=== PATIENT | male | born 1990 | race Caucasian/White ===

== ENCOUNTER 2016-11-16 14:51 | Inpatient (IN) | payer OTHER ==
[~2016-11-16] VITALS: Ht 172.7 cm; Wt 74.2 kg
[2016-11-16] MEDS ORDERED: ONDANSETRON 4 MG INJ IV STA (15:28)
[2016-11-16] MEDS ORDERED: morphine 4 MG/ML VIAL IV STA (15:28)
[2016-11-16] MEDS ORDERED: SOD CHLORIDE 0.9% 1,000 ML IV STA (15:28)
[2016-11-16 16:11] LABS: HEMATOCRIT 53.3 % (42.0-52.0); HEMOGLOBIN 17.9 g/dl (14.0-18.0); MEAN CORPUSCULAR HEMOGLOBIN 31.4 pg (29.0-33.0); MEAN CORPUSCULAR HGB CONC 33.5 g/dl (32.0-37.0); MEAN CORPUSCULAR VOLUME 93.8 fl (82.0-101.0); MEAN PLATELET VOLUME 7.6 fl (7.4-10.4); PLATELET COUNT 431 10^3/UL (140-440); RED BLOOD COUNT 5.68 10^6/ul (4.70-6.10); RED CELL DISTRIBUTION WIDTH 13.1 % (11.5-14.5)
[2016-11-16 16:17] LABS: CONDITION 1; SUSPECT 1
[2016-11-16 16:24] VITALS: TEMP 97.5
[2016-11-16 16:25] LABS: INR 1.04; PARTIAL THROMBOPLASTIN TIME 29.2 Sec (25.0-35.0); PROTIME 13.6 Sec (12.2-14.2); PT RATIO 1.1
[2016-11-16 16:28] LABS: ALBUMIN 5.6 g/dl (3.3-4.9)
[2016-11-16 16:29] LABS: POTASSIUM 4.6 mmol/L (3.5-5.1)
[2016-11-16 16:31] LABS: ALBUMIN/GLOBULIN RATIO 1.09; BILIRUBIN,INDIRECT 0.6 mg/dl (0-1.1); BILIRUBIN,TOTAL 0.6 mg/dl (0.2-1.3); CREATININE 0.99 mg/dl (0.61-1.24); TOTAL PROTEIN 10.7 g/dl (6.1-8.1)
[2016-11-16 16:32] LABS: CALCIUM 11.6 mg/dl (8.4-10.2)
[2016-11-16 16:50] LABS: LYMPHOCYTES # 2.3 10^3/ul (0.8-2.9); MONOCYTE # 0.3 10^3/ul (0.3-0.9); NEUTROPHIL # 21.3 10^3/ul (1.6-7.5)
[2016-11-16 16:52] LABS: PLATELET ESTIMATE PLT APPEAR INCREASED
[2016-11-16] MEDS ORDERED: LIDOCAINE 2% VISC 15 ML CUP PO ONE (17:00)
--- NOTE | 2016-11-16 17:00 | RADRPT ---
PROCEDURE: CT Abdomen and Pelvis without contrast CLINICAL INDICATION: The abdominal pain TECHNIQUE: Transaxial images were obtained through the abdomen and pelvis on a multi-slice scanner without the intravenous contrast administration. no oral contrast had previously been given. Sagitt al and coronal re-formations were subsequently reconstructed. One or more of the following dose reduction techniques were used: - Automated exposure control. - Adjustment of the mA and/or kV according to patient size. - Use of iterative reconstruction technique. Radiation dose: CTDIvol = 8.58 mGy; DLP = 454.74 mGy-cm. COMPARISON: 09/22/2016 FINDINGS: Lung bases: A 7 mm pleural based calcified granuloma is again seen within the posterior right lower lobe. Liver: Normal in size and in attenuation. There is no focal lesion. Gallbladder: The wall is not thickened. No radiopaque stones are identified. Bile ducts: The intra and extrahepatic bile ducts are normal in caliber. Pancreas: Appears normal with no mass or inflammation evident. Spleen: There is a very small lobulated spleen containing an 3 mm calcification laterally. Adrenals: Normal with no mass identified. Kidneys, ureters and bladder: The kidneys are normal in size and there is no mass, pathological calc ification, or hydronephrosis evident. There is no perinephric stranding. The ureters are normal in c aliber and no ureteroliths are identified. The bladder appears unremarkable. Reproductive organs: The prostate is not enlarged. Stomach and bowel: There is substantial stool within the right colon. There are a elongated air and fluid distended segments of proximal and mid small bowel with an abrupt caliber change, compatible with a mid small bowel obstruction. This is not significantly changed from the previous study. The stomach is again distended with fluid. Appendix: A normal vermiform appendix is evident. Peritoneum: The small amount of free intraperitoneal fluid previously seen within the pelvis is no l onger identified and no free air is evident. Aorta: Normal in caliber with no aneurysmal dilatation. IVC: Unremarkable. Lymph nodes: No pathologically enlarged nodes are identified. Osseous structures: The osseous elements appear intact. A bone island is seen in the left femoral h ead, unchanged. Metallic sternal wiring is noted. IMPRESSION: 1. Since the previous CT of 11/22/2015, findings are again consistent with the mid small bowel obst ruction. The distal small bowel is small and normal in caliber. Some stool is seen within the right colon and there is a normal-appearing vermiform appendix. The stomach remains moderately distended with fluid. 2. Small lobulated spleen containing a 3 mm calcification. 3. No evidence of urinary outflow obstruction or ureterolithiasis with the bladder appearing normal . 4. There is no longer free intraperitoneal fluid and no free intraperitoneal air is identified. 5. Evidence of previous midline sternotomy. Findings of mid small bowel obstruction were telephoned by Mitch Gandhi MD to Dr. Mckoy on 017 at 1655 hours. Physician Itzel Date Time Electronically viewed and signed by Physician Itzel on 11/16/2016 16:59 RH/
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
[2016-11-16] MEDS ORDERED: ACETAMINOPHEN 325 MG TAB PO PRN ×2 (18:00→19:00)
[2016-11-16] MEDS ORDERED: ONDANSETRON 4 MG INJ IV PRN ×2 (18:00→19:00)
--- NOTE | 2016-11-16 18:46 | RADRPT ---
PROCEDURE: XR Chest. CLINICAL INDICATION: Nasogastric tube placement TECHNIQUE: Single frontal view of the chest. COMPARISON: 09/22/2016 chest radiograph. FINDINGS: Postoperative changes from open thoracic surgery with sternotomy wires. The lungs are clear. No pleural effusion or pneumothorax. The cardiomediastinal silhouette is unremarkable. No acute osseous abnormalities. Side nasogastric tube at the level of the gastroesophageal junction. IMPRESSION: No acute abnormalities. Recommend advancing nasogastric tube by 10 cm. Results were discussed with Nurse Mera by telephone at 1839 hours on 11/16/[address] Storm headley RPTAT: AADD .Storm Mei MD, MD Date Time Electronically viewed and signed by .Storm Mei MD, MD on 11/16/2016 18:46 .B/
[2016-11-16] MEDS ORDERED: NA PHOSPHATE/BIPHOS 133 ML ENEMA PR PRN (19:00)
[2016-11-16] MEDS ORDERED: DOCUSATE SODIUM 100 MG CAP PO PRN (19:00)
[2016-11-16] MEDS ORDERED: NACL 0.9% 3 ML SYG IV SCH (19:00)
[2016-11-16] MEDS ORDERED: NITROGLYCERIN (SL) 0.4 MG TAB SL PRN (19:00)
[2016-11-16] MEDS ORDERED: HYDROCODONE/APAP (5/325) TAB PO PRN (19:00)
[2016-11-16] MEDS ORDERED: hydrALAzine 20 MG INJ IV PRN (19:00)
[2016-11-16] MEDS ORDERED: MAGNESIUM HYDROXIDE 30ML CUP PO PRN (19:00)
[2016-11-16] MEDS ORDERED: ALBUTEROL/IPRATROPIUM (NEB) 3 ML AMP HHN PRN (19:00)
[2016-11-16] MEDS ORDERED: LORAZEPAM 2 MG INJ IV PRN (19:00)
[2016-11-16] MEDS: morphine 2 MG INJ IV PRN (19:08)
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
[2016-11-16 20:09] VITALS: Ht 172.7 cm; Wt 74.2 kg
[2016-11-16 20:10] VITALS: BP 121/68; PULSE 79; RESP 18
[2016-11-16] MEDS: SOD CHLORIDE 0.9% 1,000 ML IV SCH (20:38)
[2016-11-16] MEDS: HEPARIN 5,000 UNIT/0.5 ML SYG SC SCH (22:25)
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
[2016-11-17] MEDS: SOD CHLORIDE 0.9% 1,000 ML IV SCH ×3 (04:32→15:29)
[2016-11-17] MEDS: PANTOPRAZOLE 40 MG INJ IV SCH (05:27)
[2016-11-17 07:11] LABS: POTASSIUM 4.4 mmol/L (3.5-5.1)
[2016-11-17 07:14] LABS: CREATININE 0.66 mg/dl (0.61-1.24); PHOSPHORUS 4.9 mg/dl (2.5-4.9)
[2016-11-17 07:15] LABS: CALCIUM 9.2 mg/dl (8.4-10.2); MAGNESIUM 1.8 mg/dl (1.7-2.5)
[2016-11-17 08:08] LABS: BASOPHILS % 0.3 % (0.0-2.0); EOSINOPHILS # 0.1 10^3/ul (0.0-0.5); EOSINOPHILS % 0.7 % (0.0-7.0); HEMATOCRIT 40.4 % (42.0-52.0); HEMOGLOBIN 13.7 g/dl (14.0-18.0); LYMPHOCYTES # 2.5 10^3/ul (0.8-2.9); LYMPHOCYTES % 21.6 % (15.0-51.0); MEAN CORPUSCULAR HEMOGLOBIN 31.7 pg (29.0-33.0); MEAN CORPUSCULAR HGB CONC 33.8 g/dl (32.0-37.0); MEAN CORPUSCULAR VOLUME 93.7 fl (82.0-101.0); MEAN PLATELET VOLUME 8.1 fl (7.4-10.4); MONOCYTE # 1.1 10^3/ul (0.3-0.9); MONOCYTES % 9.8 % (0.0-11.0); NEUTROPHIL # 7.8 10^3/ul (1.6-7.5); NEUTROPHILS % 67.6 % (39.0-77.0); PLATELET COUNT 476 10^3/UL (140-440); RED BLOOD COUNT 4.31 10^6/ul (4.70-6.10); RED CELL DISTRIBUTION WIDTH 13.2 % (11.5-14.5); UNCORRECTED WBC 11.5 10^3/ul (4.8-10.8); WHITE BLOOD COUNT 11.5 10^3/ul (4.8-10.8)
[2016-11-17 08:13] LABS: CONDITION 1
[2016-11-17 08:29] VITALS: BP 126/68; RESP 19
[2016-11-17 09:21] LABS: CHOL/HDL RATIO 3.9 RATIO
[2016-11-17] MEDS: HEPARIN 5,000 UNIT/0.5 ML SYG SC SCH ×2 (09:43→20:09)
[2016-11-17] MEDS: morphine 2 MG INJ IV PRN ×3 (09:44→19:35)
--- NOTE | 2016-11-17 10:09 | RADRPT ---
PROCEDURE: XR Abdomen. CLINICAL INDICATION: Abdominal pain TECHNIQUE: Two views (supine and upright) of the abdomen are available for review. COMPARISON: CT abdomen/pelvis 11/16/2016 FINDINGS: No organomegaly. There is a dilated loop of small bowel in the left upper abdomen with normal calibe r distal small bowel. There is scattered fecal material an air in nondilated colon. No free air is identified. No calculi identified. Unremarkable axial skeleton. IMPRESSION: Dilated loop of small bowel in the left upper abdomen with a normal caliber distal small bowel and s cattered fecal material and air in a nondilated colon (query partial proximal small bowel obstructio n). RPTAT: HGDB .Darryl Haynes MD, MD Date Time Electronically viewed and signed by .Darryl Haynes MD, on 11/17/2016 10:09 .B/
[2016-11-17 10:11] LABS: THYROID STIMULATING HORMONE 0.342 MIU/L (0.465-4.680)
[2016-11-17 10:31] LABS: ADD UMIC NO; URINE BILIRUBIN (Dip) NEGATIVE (NEGATIVE); URINE BLOOD (Dip) NEGATIVE (NEGATIVE); URINE COLOR YELLOW (YELLOW); URINE GLUCOSE (Dip) NEGATIVE (NEGATIVE); URINE KETONES (Dip) 15 (NEGATIVE); URINE LEUKOCYTE ESTERASE (Dip) NEGATIVE (NEGATIVE); URINE NITRITE (Dip) NEGATIVE (NEGATIVE); URINE TOTAL PROTEIN (Dip) NEGATIVE (NEGATIVE); URINE UROBILINOGEN (Dip) 0.2 E.U./dL (0.1-1.0)
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
[2016-11-17 13:37] LABS: LH ANALYZER COMMENTS 1
[2016-11-17 19:36] VITALS: BP 121/60; RESP 18
--- NOTE | 2016-11-17 20:34 | PN ---
DATE: 11/17/2016 SUBJECTIVE: Mr. Rodriguez is hospital day 1 for a small-bowel obstruction. The patient was without c omplaints. He is tolerating clears, passing gas, having bowel movements. OBJECTIVE VITAL SIGNS: He is afebrile. Vital signs stable. ABDOMEN: Soft, nondistended. LABORATORY DATA: Reveal a white count today of 11, hematocrit of 40, and platelets of 476. Sodium 143, potassium 4.4, chloride 103, CO2 24, BUN and creatinine 19 and 0.6, and glucose 78. IMAGING: Abdominal series today revealed improving small-bowel obstruction with air in the colon. ASSESSMENT AND PLAN Mr. Rodriguez is a 26-year-old male with a resolving small-bowel obstruction: 1. Advance to soft diet in the a.m. 2. If tolerates soft diet, may discharge home tomorrow. Dictated By: JULISA COHEN/NTS Conf#: [id number] DID#: [id number]
[2016-11-17] MEDS ORDERED: DIATR MEGLU/DIATRIZOATE SODIUM 120 ML BTL PO ONE (22:00)
[2016-11-17 22:18] VITALS: BP 111/55; RESP 18
[2016-11-18] MEDS: SOD CHLORIDE 0.9% 1,000 ML IV SCH ×2 (02:24→09:54)
[2016-11-18] MEDS: morphine 2 MG INJ IV PRN ×2 (03:56→09:54)
[2016-11-18] MEDS: PANTOPRAZOLE 40 MG INJ IV SCH (05:29)
[2016-11-18 07:46] VITALS: BP 115/61; RESP 20
[2016-11-18 08:10] LABS: BASOPHILS % 0.5 % (0.0-2.0); EOSINOPHILS # 0.1 10^3/ul (0.0-0.5); EOSINOPHILS % 2.3 % (0.0-7.0); HEMATOCRIT 38.7 % (42.0-52.0); HEMOGLOBIN 13.2 g/dl (14.0-18.0); LYMPHOCYTES # 2.1 10^3/ul (0.8-2.9); LYMPHOCYTES % 35.5 % (15.0-51.0); MEAN CORPUSCULAR HEMOGLOBIN 31.8 pg (29.0-33.0); MEAN CORPUSCULAR HGB CONC 34.1 g/dl (32.0-37.0); MEAN CORPUSCULAR VOLUME 93.2 fl (82.0-101.0); MEAN PLATELET VOLUME 7.7 fl (7.4-10.4); MONOCYTE # 0.5 10^3/ul (0.3-0.9); NEUTROPHIL # 3.1 10^3/ul (1.6-7.5); NEUTROPHILS % 52.7 % (39.0-77.0); PLATELET COUNT 400 10^3/UL (140-440); RED BLOOD COUNT 4.15 10^6/ul (4.70-6.10); RED CELL DISTRIBUTION WIDTH 13.1 % (11.5-14.5); UNCORRECTED WBC 5.9 10^3/ul (4.8-10.8); WHITE BLOOD COUNT 5.9 10^3/ul (4.8-10.8)
[2016-11-18 08:11] LABS: CONDITION 1
[2016-11-18 08:25] LABS: POTASSIUM 3.8 mmol/L (3.5-5.1)
[2016-11-18 08:27] LABS: CREATININE 0.59 mg/dl (0.61-1.24)
[2016-11-18 08:28] LABS: CALCIUM 8.5 mg/dl (8.4-10.2)
[2016-11-18] MEDS: HEPARIN 5,000 UNIT/0.5 ML SYG SC SCH (09:53)
--- NOTE | 2016-11-18 09:54 | RADRPT ---
PROCEDURE: XR Abdomen CLINICAL INDICATION: Small bowel obstruction TECHNIQUE: AP supine and upright radiographs of the abdomen were submitted COMPARISON: 11/17/2016 FINDINGS: There is metallic sternal wiring and surgical karol are seen in the left upper quadrant of the abd omen. There is a mild ileus located to the right upper quadrant and mid left abdomen. No free air is identified. No organomegaly or discrete mass is evident. No pathological calcification is identified. The osseous elements appear unremarkable. IMPRESSION: 1. Previous midline sternotomy and left upper quadrant abdominal surgery. 2. Mild ileus localized to the right upper quadrant and mid left abdomen, improved over the previou s. Air is seen through the colon. 3. No evidence of high-grade bowel obstruction Physician Itzel Date Time Electronically viewed and signed by Physician Itzel on 11/18/2016 09:54 /
--- NOTE | 2016-11-18 13:13 | PDOCDIS ---
Discharge Instructions CONDITION Patient Condition: Stable HOME CARE INSTRUCTIONS: Special Diet: Soft Diet ACTIVITY: Activity Restrictions: Slowly Increase Activity FOLLOW UP/APPOINTMENTS Appointments Please take your medications as prescribed. Please see your doctor in the clinic in 1 week. DARREL CASTANON Nov 18, 2016 13:12
[2016-11-18] MEDS ORDERED: UDMOM PO (13:14)
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
== END 2016-11-18 15:12 | disposition home or self-care (01) | DRG 390 ==
LOC: FTE 14:51 → MS1 17:34 → PP2 11-17 22:05
PROVIDERS: ADMIT Hospitalist; ATTEND Hospitalist
DX: K56.60 Unspecified intestinal obstruction (principal); D72.829 Elevated white blood cell count, unspecified
CPT/HCPCS: 71010; 74010; 74176; 80048; 80053; 80061; 81003; 83036; 83605; 83690; 83735; 84100; 84439; 84443; 85025; 85610; 85730; C9113; J2270; J2405; J7030

== ENCOUNTER 2016-12-03 15:44 | Emergency (ER) | payer OTHER ==
[~2016-12-03] VITALS: Ht 172.7 cm; Wt 71.0 kg
[~2016-12-03 15:44] MED LIST: UDMOM PO
[2016-12-03 16:00] VITALS: Ht 172.7 cm; Wt 71.0 kg
[2016-12-03] MEDS ORDERED: morphine 4 MG/ML VIAL IV STA (17:13)
[2016-12-03] MEDS ORDERED: ONDANSETRON 4 MG INJ IV STA (17:13)
[2016-12-03] MEDS ORDERED: SOD CHLORIDE 0.9% 1,000 ML IV STA (17:13)
[2016-12-03 18:05] LABS: HEMATOCRIT 50.8 % (42.0-52.0); HEMOGLOBIN 17.1 g/dl (14.0-18.0); MEAN CORPUSCULAR HEMOGLOBIN 31.4 pg (29.0-33.0); MEAN CORPUSCULAR HGB CONC 33.7 g/dl (32.0-37.0); MEAN PLATELET VOLUME 8.1 fl (7.4-10.4); PLATELET COUNT 385 10^3/UL (140-440); RED BLOOD COUNT 5.46 10^6/ul (4.70-6.10); RED CELL DISTRIBUTION WIDTH 12.9 % (11.5-14.5); UNCORRECTED WBC 18.4 10^3/ul (4.8-10.8); WHITE BLOOD COUNT 18.4 10^3/ul (4.8-10.8)
[2016-12-03 18:09] LABS: CONDITION 1; LH ANALYZER COMMENTS 1; SUSPECT 1
[2016-12-03 18:17] LABS: ALBUMIN 5.3 g/dl (3.3-4.9)
[2016-12-03 18:20] LABS: ALBUMIN/GLOBULIN RATIO 1.08; BILIRUBIN,INDIRECT 0.3 mg/dl (0-1.1); BILIRUBIN,TOTAL 0.3 mg/dl (0.2-1.3); CREATININE 0.82 mg/dl (0.61-1.24); TOTAL PROTEIN 10.2 g/dl (6.1-8.1)
[2016-12-03 18:21] LABS: CALCIUM 10.7 mg/dl (8.4-10.2)
--- NOTE | 2016-12-03 18:30 | RADRPT ---
PROCEDURE: CT abdomen and pelvis without contrast. CLINICAL INDICATION: Abdominal pain. TECHNIQUE: CT scan of the abdomen and pelvis without contrast was performed on a multi-slice CT [facility] . Sagittal and coronal reformatted images were obtained from the axial source images. DLP 389.4 mGycm. CTDIvol 7.6 mGy COMPARISON: 11/16/2016 FINDINGS: The lung bases are clear. There is limited evaluation of the solid viscera from the lack of IV con trast. There is normal density of the liver with no gross focal lesion or biliary ductal dilatation. The gallbladder is unremarkable without inflammation. The spleen is unremarkable without mass. The adrenal glands are within normal limits without mass. The kidneys are symmetric bilaterally with no evidence of renal or ureteral calculi. There is no hy dronephrosis or perinephric stranding. The pancreas is unremarkable without focal lesion or surrounding inflammatory changes. Again seen is dilatation of the small bowel within the mid abdomen with a narrow focal point of ngo sition seen on series 3, image 79 with distal small bowel collapse. The colon is collapsed as well and there is no appendicitis. There is no free air or free fluid. The stomach is well distended an d the proximal jejunum is nondilated. Mild inflammatory changes of the aguero of the dilated bowel i s again seen with air-fluid levels. There is no free air or free fluid. The aorta is unremarkable and there is no acute osseous abnormality. The uterus and adnexal structures within normal limits. IMPRESSION: Again seen are loops of prominently dilated bowel in the mid abdomen with an area of focal point of transition seen with distal collapse of the of the small and large bowel without evidence of appendi citis. There is no CT evidence of perforation. This could represent a small bowel obstruction rela flavio to an adhesion. The presence of an internal hernia is not excluded. No evidence of renal or ureteral calculi or hydronephrosis. RPTAT: AA .Itz Moses MD, MD Date Time Electronically viewed and signed by .Itz Moses MD, MD on 12/03/2016 18:30 .J/
[2016-12-03 18:44] LABS: LYMPHOCYTES # 1.7 10^3/ul (0.8-2.9); MONOCYTE # 0.6 10^3/ul (0.3-0.9); NEUTROPHIL # 15.8 10^3/ul (1.6-7.5)
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
== END 2016-12-03 20:16 | disposition left against medical advice (07) ==
LOC: FTE 15:44
DX: K56.69 Other intestinal obstruction (principal); D72.829 Elevated white blood cell count, unspecified; R11.10 Vomiting, unspecified
CPT/HCPCS: 36415; 74176; 80053; 83690; 85025; 96374; 96375; J2270; J2405; J7030; Z7502

== ENCOUNTER 2017-04-13 17:35 | Inpatient (IN) | payer OTHER ==
[~2017-04-13] VITALS: Ht 172.7 cm; Wt 75.6 kg
[2017-04-13] MEDS ORDERED: SOD CHLORIDE 0.9% 1,000 ML IV STA (18:44)
[2017-04-13] MEDS ORDERED: ONDANSETRON 4 MG INJ IV STA ×2 (18:44→20:35)
[2017-04-13] MEDS ORDERED: FAMOTIDINE 20 MG INJ IV STA (18:44)
[2017-04-13 19:03] LABS: ADD SCAN DIFF NO
[2017-04-13 19:07] LABS: BASOPHILS % 0.2 % (0.0-2.0); EOSINOPHILS # 0.1 10^3/ul (0.0-0.5); EOSINOPHILS % 0.6 % (0.0-7.0); HEMATOCRIT 47.3 % (42.0-52.0); HEMOGLOBIN 16.1 g/dl (14.0-18.0); LYMPHOCYTES # 1.4 10^3/ul (0.8-2.9); LYMPHOCYTES % 7.2 % (15.0-51.0); MEAN CORPUSCULAR HEMOGLOBIN 30.6 pg (29.0-33.0); MEAN CORPUSCULAR VOLUME 89.9 fl (82.0-101.0); MEAN PLATELET VOLUME 9.5 fl (7.4-10.4); MONOCYTE # 1.4 10^3/ul (0.3-0.9); MONOCYTES % 7.2 % (0.0-11.0); NEUTROPHIL # 16.1 10^3/ul (1.6-7.5); NEUTROPHILS % 84.4 % (39.0-77.0); PLATELET COUNT 435 10^3/UL (140-415); RED BLOOD COUNT 5.26 10^6/ul (4.70-6.10); RED CELL DISTRIBUTION WIDTH 13.3 % (11.5-14.5); WHITE BLOOD COUNT 19.1 10^3/ul (4.8-10.8)
[2017-04-13] MEDS ORDERED: morphine 4 MG/ML VIAL IV STA (19:15)
[2017-04-13 19:22] LABS: ALBUMIN 5.3 g/dl (3.3-4.9); ALBUMIN/GLOBULIN RATIO 1.43; BILIRUBIN,INDIRECT 0.4 mg/dl (0-1.1); BILIRUBIN,TOTAL 0.4 mg/dl (0.2-1.3); CALCIUM 9.6 mg/dl (8.4-10.2); CREATININE 0.74 mg/dl (0.61-1.24); POTASSIUM 4.2 mmol/L (3.5-5.1)
--- NOTE | 2017-04-13 19:37 | RADRPT ---
PROCEDURE: CT abdomen and pelvis without contrast. CLINICAL INDICATION: Abdominal pain and vomiting TECHNIQUE: CT scan of the abdomen and pelvis without contrast was performed on a multislice CT [facility] utilizing axial imaging from the lung bases through the pubis symphysis. The patient was scann ed without intravenous contrast. Sagittal and coronal reformatted images were made. The CTDIvol is 8.88 mGy and the DLP is 502.69 mGycm. One of the following 3 dose reduction techniques were used during this CT examination: automated exp osure control; adjustment of the mA and /or kV according to patient size; or use of iterative recons truciton technique. COMPARISON: 12/03/2016 CT 12/03/2016 FINDINGS: The lung bases are clear. The heart size is normal. No pericardial or pleural effusions are present . The patient is status post remote median sternotomy changes. The visualized liver is normal. The gallbladder is normal. No evidence for intrahepatic or extra pa sarah biliary ductal dilatation is present annette The patient is status post remote splenectomy changes . Markedly distended stomach with gastric contents are noted. Again noted are multiple dilated seg ments of small bowel in the upper to distal small bowel with maximum dimension of approximately 4.7 cm. Although difficult, the transition appears to be in the mid to lower quadrants of the abdomen. The visualized distal small bowel and colon are decompressed. The bilateral adrenal glands are nor mal. The bilateral kidneys are normal without evidence for hydroureteronephrosis or nephroureteroli thiasis. No evidence for abdominal ascites or pneumoperitoneum is present. The aorta is normal. No evidence for aneurysmal dilatation is present. The visualized pelvis demonstrates a normal urinary bladder. The prostate gland is normal. The imaged osseous structures demonstrate bilateral L5 spondylolysis without evidence for spondyloli sthesis. IMPRESSION: 1. Small bowel obstruction with transition point likely in the mid abdomen although poorly visualiz ed. 2. No evidence for pneumoperitoneum or ascites. 3. 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 RPTAT: HDC .Flakita Orozco MD, MD Date Time Electronically viewed and signed by .Flakita Orozco MD, MD on 04/13/2017 19:37 .C/
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
[2017-04-13] MEDS ORDERED: SOD CHLORIDE 0.9% 1,000 ML IV SCH (19:50)
[2017-04-13] MEDS ORDERED: LIDOCAINE 2% VISC 15 ML CUP PO ONE (20:00)
[2017-04-13] MEDS ORDERED: ACETAMINOPHEN 325 MG TAB PO PRN (20:00)
[2017-04-13] MEDS ORDERED: ONDANSETRON 4 MG INJ IV PRN ×2 (20:00→21:00)
[2017-04-13 20:31] VITALS: PULSE 80; TEMP 98
[2017-04-13] MEDS ORDERED: HYDROmorphONE 1 MG/ML SYG IV STA (20:35)
[2017-04-13] MEDS ORDERED: NACL 0.9% 3 ML SYG IV SCH (21:00)
[2017-04-13] MEDS ORDERED: ACETAMINOPHEN 650 MG SUPP PR PRN (21:00)
[2017-04-13] MEDS ORDERED: HYDROmorphONE 1 MG/ML SYG IV PRN (21:00)
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
[2017-04-13 21:18] VITALS: BP 133/83; RESP 20
[2017-04-13] MEDS: SOD CHLORIDE 0.9% 1,000 ML IV SCH (21:49)
[2017-04-13] MEDS: PANTOPRAZOLE 40 MG INJ IV SCH (21:49)
[2017-04-13 21:53] VITALS: Ht 172.7 cm; Wt 75.6 kg
[2017-04-14] MEDS: morphine 4 MG/ML VIAL IV PRN ×4 (05:15→21:33)
[2017-04-14 05:37] LABS: ADD SCAN DIFF NO
[2017-04-14 05:54] LABS: ABNORMAL IP MESSAGE 1; BASOPHILS % 0.3 % (0.0-2.0); EOSINOPHILS # 0.3 10^3/ul (0.0-0.5); EOSINOPHILS % 1.9 % (0.0-7.0); HEMATOCRIT 41.7 % (42.0-52.0); HEMOGLOBIN 14.4 g/dl (14.0-18.0); LYMPHOCYTES # 1.3 10^3/ul (0.8-2.9); LYMPHOCYTES % 8.8 % (15.0-51.0); MEAN CORPUSCULAR HGB CONC 34.5 g/dl (32.0-37.0); MEAN CORPUSCULAR VOLUME 89.9 fl (82.0-101.0); MEAN PLATELET VOLUME 9.2 fl (7.4-10.4); MONOCYTE # 1.6 10^3/ul (0.3-0.9); MONOCYTES % 10.9 % (0.0-11.0); NEUTROPHIL # 11.3 10^3/ul (1.6-7.5); NEUTROPHILS % 77.8 % (39.0-77.0); PLATELET COUNT 437 10^3/UL (140-415); RED BLOOD COUNT 4.64 10^6/ul (4.70-6.10); RED CELL DISTRIBUTION WIDTH 13.2 % (11.5-14.5); WHITE BLOOD COUNT 14.5 10^3/ul (4.8-10.8)
[2017-04-14] MEDS: PANTOPRAZOLE 40 MG INJ IV SCH ×2 (06:10→19:04)
[2017-04-14 06:24] LABS: ALBUMIN 4.6 g/dl (3.3-4.9); ALBUMIN/GLOBULIN RATIO 1.7; BILIRUBIN,INDIRECT 0.5 mg/dl (0-1.1); BILIRUBIN,TOTAL 0.5 mg/dl (0.2-1.3); CALCIUM 8.7 mg/dl (8.4-10.2); CREATININE 0.68 mg/dl (0.61-1.24); MAGNESIUM 1.9 mg/dl (1.7-2.5); PHOSPHORUS 3.8 mg/dl (2.5-4.9); POTASSIUM 3.9 mmol/L (3.5-5.1); TOTAL PROTEIN 7.3 g/dl (6.1-8.1)
[2017-04-14 07:43] VITALS: BP 126/65; RESP 18
--- NOTE | 2017-04-14 10:08 | RADRPT ---
PROCEDURE: XR Abdomen. CLINICAL INDICATION: Abdominal pain TECHNIQUE: Single frontal view of the abdomen was obtained. COMPARISON: CT from yesterday FINDINGS: There are moderately dilated loops of small bowel seen throughout the abdomen. There is air noted t hroughout the colon, including air in the rectosigmoid region. There are no abnormal calcifications overlying the urinary tracts. The soft tissues are unremarkable. The osseous structures are unremarkable. RPTAT: AA IMPRESSION: Moderately dilated loops of small bowel are noted, slightly improved when compared to the CT from . The findings likely represent a partial small bowel obstruction . .Zachary Ellis MD, MD Date Time Electronically viewed and signed by .Zachary Ellis MD, MD on 04/14/2017 10:08 .S/
[2017-04-14] MEDS: SOD CHLORIDE 0.9% 1,000 ML IV SCH ×2 (10:18→16:35)
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
--- NOTE | 2017-04-14 14:02 | RADRPT ---
PROCEDURE: XR Chest 1 View. CLINICAL INDICATION: Status post nasogastric tube placement TECHNIQUE: AP view of the chest was obtained. COMPARISON: November 16, 2016 FINDINGS: The cardiomediastinal silhouette is within normal limits. Median sternotomy wires overlie the heart. Nasogastric tube has its distal end curled in the expected location of the stomach. Subsegmental atelectasis is seen at the left lung base. No consolidations are identified. No pneumothorax is see n. Osseous structures are intact. IMPRESSION: Nasogastric tube with its distal end curled in the expected location of the stomach. Subsegmental atelectasis at the left lung base. RPTAT: AA .Michelet Ivy MD, MD Date Time Electronically viewed and signed by .Michelet Ivy MD, on 04/14/2017 14:02 .P/
[2017-04-14 19:30] VITALS: BP 125/71; RESP 20
--- NOTE | 2017-04-14 20:21 | PN ---
Date/Time of Note Date/Time of Note DATE: 04/14/17 TIME: 20:18 Assessment/Plan Lines/Catheters IV Catheter Type (from [facility]): Peripheral IV Rocha in Place (from [facility]): No Assessment/Plan Chief Complaint/Hosp Course 1. Abdominal pain secondary to recurrent partial small bowel obstruction. -N.p.o. -NG tube -Judicious fluid management -Close monitoring -Small bowel follow-through at some point 2. Leukocytosis probably secondary to above -As above -Consider antibiotics 3. Hypernatremia -Judicious fluid management and close monitoring 4. Nausea vomiting the above -As above Thank you very much for consulting me in this patient's care, Dict #: [id number] Problems: Subjective 24 Hr Interval Summary Minimal flatus this morning. No nausea vomiting. No bowel movements. Pain improved. No chest pain shortness of breath. No cough or seizures. No blood per mouth or rectum. No dysuria. He pulled NG tube out this morning however nurses replaced NG tube. Exam/Review of Systems Vital Signs Vitals Vital Signs Date Time Temp Pulse Resp B/P Pulse Ox O2 Delivery O2 Flow Rate FiO2 04/14/17 19:30 97.9 56 20 125/71 98 04/13/17 20:31 Room Air Intake and Output 04/13/17 04/13/17 04/14/17 14:59 22:59 06:59 Intake Total 600 ml Output Total 5 ml Balance 595 ml Exam Constitutional: alert, oriented, No distress Psych: nl mood/affect, No anxiety Head: atraumatic, normocephalic Eyes: EOMI, PERRL, nl conjunctiva, No icteric ENMT: mucosa pink and moist, nl external ears & nose, nl lips & teeth Neck: non-tender, supple, No jvd Respiratory: normal air movement, No congested cough, No crackles/rales, No labored breathing Cardiovascular: regular rate and rhythm, No edema Gastrointestinal: soft, tender (Minimal), No distended, No rebound or guarding Genitourinary - Male: nl penis, nl scrotum Musculoskeletal: nl extremities to inspection, nl gait and stance, No joint tenderness Extremities: normal pulses, No calf tenderness, No cyanosis Neurological: nl mental status, nl speech, nl strength Skin: nl turgor, No diaphoresis, No rash or lesions Lymph: nl lymph nodes Results Result Diagram: 04/14/17 0500 04/14/17 0500 SANTIAGO MENDOZA MD Apr 14, 2017 20:21
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
[2017-04-15] MEDS: morphine 4 MG/ML VIAL IV PRN ×3 (02:36→11:38)
[2017-04-15 05:55] LABS: ADD SCAN DIFF NO
[2017-04-15 05:59] LABS: BASOPHILS % 0.3 % (0.0-2.0); EOSINOPHILS # 0.3 10^3/ul (0.0-0.5); EOSINOPHILS % 2.6 % (0.0-7.0); HEMATOCRIT 42.1 % (42.0-52.0); HEMOGLOBIN 14.2 g/dl (14.0-18.0); LYMPHOCYTES # 2.2 10^3/ul (0.8-2.9); LYMPHOCYTES % 18.4 % (15.0-51.0); MEAN CORPUSCULAR HEMOGLOBIN 30.3 pg (29.0-33.0); MEAN CORPUSCULAR HGB CONC 33.7 g/dl (32.0-37.0); MEAN CORPUSCULAR VOLUME 89.8 fl (82.0-101.0); MONOCYTES % 8.8 % (0.0-11.0); NEUTROPHIL # 8.2 10^3/ul (1.6-7.5); NEUTROPHILS % 69.6 % (39.0-77.0); PLATELET COUNT 429 10^3/UL (140-415); RED BLOOD COUNT 4.69 10^6/ul (4.70-6.10); RED CELL DISTRIBUTION WIDTH 12.9 % (11.5-14.5); WHITE BLOOD COUNT 11.7 10^3/ul (4.8-10.8)
[2017-04-15] MEDS: PANTOPRAZOLE 40 MG INJ IV SCH (06:06)
[2017-04-15] MEDS: SOD CHLORIDE 0.9% 1,000 ML IV SCH ×2 (06:09→12:58)
[2017-04-15 06:35] LABS: MAGNESIUM 1.6 mg/dl (1.7-2.5)
[2017-04-15 06:39] LABS: CALCIUM 8.7 mg/dl (8.4-10.2); CREATININE 0.66 mg/dl (0.61-1.24); POTASSIUM 3.5 mmol/L (3.5-5.1)
[2017-04-15 07:24] VITALS: BP 121/65; RESP 20
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
[2017-04-15] MEDS ORDERED: DIATR MEGLU/DIATRIZOATE SODIUM 120 ML BTL ONE (11:46)
[2017-04-15] MEDS ORDERED: MAGNESIUM SULFATE 2 GM/50 ML 50 ML IVPB ONE (12:00)
[2017-04-15] MEDS ORDERED: PIPER-TAZO 3.375 GM IV (PMX) 100 ML IVPB SCH (14:00)
--- NOTE | 2017-04-15 14:25 | RADRPT ---
PROCEDURE: XR small-bowel follow-through. CLINICAL INDICATION: Abdominal pain. TECHNIQUE: The patient was given two cups of thick barium by mouth. Multiple overhead radiographs of the abdomen were then obtained. Spot compression images of the abdomen were obtained when contra st reached the colon. COMPARISON: Radiograph dated 04/14/2017 FINDINGS: The payable manager view of the abdomen is unremarkable. Multiple dilated loops of small bowel are seen in the mid to lower abdomen, predominately on the rig ht, measuring up to 6 cm. Contrast flows normally through the small bowel loops and into the colon. Contrast reaches the cecum in 90 minutes. No intraluminal filling defects or mucosal abnormalities are identified. IMPRESSION: 1. Ileus versus partial small bowel obstruction with dilated loops of small bowel measuring up to 6 cm and delayed transit of contrast into the colon with contrast reaching the colon at 90 minutes. RPTAT: QQ .Apollo Lozada MD, Date Time Electronically viewed and signed by .Apollo Lozada MD, on 04/15/2017 14:24 .M/
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
== END 2017-04-15 16:30 | disposition left against medical advice (07) | DRG 389 ==
LOC: E/R 17:35 → MS2 19:50
PROVIDERS: ADMIT Family Medicine; ATTEND Family Medicine
DX: K56.60 Unspecified intestinal obstruction (principal); E87.0 Hyperosmolality and hypernatremia; D72.829 Elevated white blood cell count, unspecified; Z98.890 Other specified postprocedural states
CPT/HCPCS: 36415; 71010; 74000; 74176; 74250; 80048; 80053; 83690; 83735; 84100; 85025; 96374; 96375; 96376; C9113; J1170; J2270; J2405; J2543; J3475; J7030